=== PATIENT | female | born 1955 | race Caucasian/White ===

== ENCOUNTER 2019-06-20 18:22 | Emergency (ER) | payer MEDICAID, OTHER ==
[~2019-06-20] VITALS: Ht 170.2 cm; Wt 53.0 kg
[2019-06-20 21:49] VITALS: BP 110/70
== END 2019-06-20 21:52 | disposition home or self-care (01) ==
LOC: ER 18:50
DX: S90.31XA Contusion of right foot, initial encounter (principal); S93.491A Sprain of other ligament of right ankle, initial encounter; E11.9 Type 2 diabetes mellitus without complications; M32.9 Systemic lupus erythematosus, unspecified; W22.8XXA Striking against or struck by other objects, initial encounter; Y93.89 Activity, other specified; Y92.018 Other place in single-family (private) house as the place of occurrence of the external cause
CPT/HCPCS: 73610; 73630; 99283; Z7610